=== PATIENT | female | born 1935 | race Caucasian/White ===

== ENCOUNTER 2019-11-11 18:13 | Inpatient (IN) | payer OTHER ==
[~2019-11-11] VITALS: Ht 167.6 cm; Wt 61.7 kg
[2019-11-11] MEDS ORDERED: ACETAMINOPHEN 650 mg PER 20 mL UD PO ONE (18:30)
[2019-11-11 18:38] LABS: Urine WBC None Seen /hpf (0 - 5)
[2019-11-11] MEDS ORDERED: levoFLOXacin 750MG 150 ML IV ONE (19:15)
[2019-11-11 19:23] LABS: Urine Bacteria FEW /hpf (None Seen); Urine Blood Negative /uL (Negative); Urine Specific Gravity 1.022 (1.001-1.035)
[2019-11-11 19:31] LABS: Basophils # (auto) 0 10 ^3/uL (0-0.2); Basophils % (auto) 0.3 % (0.0-2.0); Eosinophils # (auto) 0 10 ^3/uL (0-0.8); Eosinophils % (auto) 0.2 % (0.0-7.0); Hemoglobin 13.1 g/dL (12.2-16.2); Lymphocytes # (auto) 0.6 10 ^3/uL (0.4-5.4); Lymphocytes % (auto) 5.8 % (10.0-50.0); Mean Corpuscular Hemoglobin 29.7 pg (28.0-32.0); Mean Corpuscular Hgb Conc. 32.9 g/dL (32.0-36.0); Mean Corpuscular Volume 90.4 fL (80.0-100.0); Monocytes # (auto) 0.5 10 ^3/uL (0-1.3); Monocytes % (auto) 4.7 % (0.0-12.0); Neutrophils # (auto) 9.1 10 ^3/uL (1.6-8.6); Platelet Count (auto) 255 10^3/uL (140-450); Red Blood Cells 4.42 10^6/uL (4.0-5.20); Red Cell Distribution Width 13.3 % (11.8-14.3); White Blood Cell 10.3 10^3/uL (4.4-10.8)
[2019-11-11 19:33] LABS: Albumin 3.4 g/dL (3.4-5.0); Potassium 3.8 mmol/L (3.5-5.1)
[2019-11-11 19:42] LABS: Bilirubin, Total 1.8 mg/dL (0.2-1.0); Total Protein 7.3 g/dL (6.4-8.2)
[2019-11-11] MEDS ORDERED: IOHEXOL 300 MG/ML 100ML BOTTLE IJ ONE (20:23)
[2019-11-11 20:56] LABS: Amylase 52 U/L (25-115); Lipase 185 U/L (73-393)
[2019-11-12] MEDS ORDERED: ONDANSETRON HCL 4 MG/2 ML VIAL IV PRN (00:45)
[2019-11-12] MEDS ORDERED: DOCUSATE SOD 100 MG CAP PO PRN (00:45)
[2019-11-12] MEDS ORDERED: MORPHINE SULFATE 4 MG/ML SYR/VIAL IV PRN (00:45)
[2019-11-12] MEDS ORDERED: HYDROcodone-ACET 5/325MG TAB PO PRN (00:45)
[2019-11-12] MEDS ORDERED: hydrALAZINE HCL 25 MG TAB PO PRN (00:45)
[2019-11-12] MEDS: SODIUM CHLORIDE 0.9% 1,000 ML IV SCH ×3 (02:03→20:43)
[2019-11-12 05:35] VITALS: BP 142/71
[2019-11-12] MEDS: metroNIDAZOLE 500MG/100ML 100 ML IV SCH ×3 (05:58→21:19)
--- NOTE | 2019-11-12 05:59 | NUR ---
ms admit from ED pt arrived via wheelchair, awake, alert and oriented x4. pt on room air no distress noted. pt denies any pain. pt oriented to room, bed control, call light and this nurse. pt updated on plan of care, aware of npo status and belongings documented. pt bed locked, low and 2x rails up. call light in reach, this nurse to round q1hr and prn.
[2019-11-12 06:07] LABS: Basophils # (auto) 0 10 ^3/uL (0-0.2); Basophils % (auto) 0.2 % (0.0-2.0); Eosinophils # (auto) 0 10 ^3/uL (0-0.8); Eosinophils % (auto) 0.7 % (0.0-7.0); Hematocrit 35.8 % (36.0-46.0); Hemoglobin 12.1 g/dL (12.2-16.2); Lymphocytes # (auto) 0.6 10 ^3/uL (0.4-5.4); Lymphocytes % (auto) 8.9 % (10.0-50.0); Mean Corpuscular Hemoglobin 30.3 pg (28.0-32.0); Mean Corpuscular Hgb Conc. 33.7 g/dL (32.0-36.0); Mean Corpuscular Volume 89.9 fL (80.0-100.0); Monocytes # (auto) 0.4 10 ^3/uL (0-1.3); Monocytes % (auto) 6.5 % (0.0-12.0); Neutrophils # (auto) 5.5 10 ^3/uL (1.6-8.6); Neutrophils % (auto) 83.7 % (37.0-80.0); Nucleated Red Blood Cells % 0.1 %; Platelet Count (auto) 210 10^3/uL (140-450); Red Blood Cells 3.99 10^6/uL (4.0-5.20); Red Cell Distribution Width 13.2 % (11.8-14.3); White Blood Cell 6.6 10^3/uL (4.4-10.8)
[2019-11-12 06:24] LABS: Calcium 8.2 mg/dL (8.5-10.1); Potassium 3.4 mmol/L (3.5-5.1)
[2019-11-12 06:26] LABS: BUN/Creatinine Ratio 17.1
--- NOTE | 2019-11-12 08:05 | NUR ---
Opening Note Assumed care of patient, she is A & O x4, patient is hard of hearing. She left her hearing aid at home, she does not want to lose it here. POC discussed with patient. Bed is in lowest, locked position, call light within reach. Will continue to monitor Q1h and PRN.
[2019-11-12 09:00] VITALS: BP 132/71
[2019-11-12] MEDS: ACETAMINOPHEN 325 MG TAB PO PRN (09:54)
[2019-11-12] MEDS: CARVEDILOL 3.125 MG TAB PO SCH ×2 (09:54→21:20)
[2019-11-12 13:00] VITALS: BP 100/60
--- NOTE | 2019-11-12 14:01 | NUR ---
Dr. Chilel at bedside.
--- NOTE | 2019-11-12 14:20 | NUR ---
Orders from Dr. Garcia Received, read back and verified. Make patient NPO after 1900. Patient informed and educated. She agrees.
[2019-11-12] MEDS ORDERED: ALPR0.254 PO (14:21)
[2019-11-12] MEDS ORDERED: LEVO50TA7 PO (14:21)
[2019-11-12] MEDS ORDERED: ENAL2.5T PO (14:21)
[2019-11-12] MEDS ORDERED: ARIP1TAB58 PO (14:21)
[2019-11-12] MEDS ORDERED: METO25TA93 PO (14:21)
[2019-11-12] MEDS ORDERED: ESCI10TA53 PO (14:21)
[2019-11-12] MEDS ORDERED: LIOT1TAB2 PO (14:21)
[2019-11-12] MEDS ORDERED: ATOR20TA PO (14:21)
[2019-11-12] MEDS ORDERED: NORT-22 PO (14:21)
[2019-11-12 14:31] LABS: Albumin 2.7 g/dL (3.4-5.0); Calcium 8.2 mg/dL (8.5-10.1); Potassium 3.3 mmol/L (3.5-5.1)
[2019-11-12 14:35] LABS: BUN/Creatinine Ratio 13.4; Total Protein 6.7 g/dL (6.4-8.2)
[2019-11-12] MEDS ORDERED: cefTRIAXone 1GM/50ML D5W 50 ML IV ONE (14:45)
[2019-11-12 16:22] VITALS: BP 117/68
--- NOTE | 2019-11-12 18:40 | NUR ---
Tamir Coughlin at bedside Spoke to patient regarding possible surgical procedure, spoke to patient's son Scar as well on the phone. Will await orders at this time.
--- NOTE | 2019-11-12 20:07 | NUR ---
open note assumed care of pt, upon entering room pt awake, alert and oriented x4. pt on room air no distress noted or expressed. pt denies any pain. pt updated on plan of care. pt aware of NPO status after midnight in case of possible procedure tomorrow. pt bed locked, low and 2x rails up. pt call light in reach, this nurse to round q1hr and prn. pt encouraged to call as needed, including when pt needs to use restroom, to which pt agreed.
[2019-11-12 22:00] VITALS: BP 149/80
[2019-11-13] VITALS (7 sets, daily range): BP systolic 129–139; BP diastolic 70–76
[2019-11-13] MEDS: metroNIDAZOLE 500MG/100ML 100 ML IV SCH ×3 (06:13→21:57)
[2019-11-13] MEDS: SODIUM CHLORIDE 0.9% 1,000 ML IV SCH ×2 (06:13→16:31)
[2019-11-13 06:51] LABS: Basophils # (auto) 0 10 ^3/uL (0-0.2); Basophils % (auto) 0.5 % (0.0-2.0); Eosinophils # (auto) 0.1 10 ^3/uL (0-0.8); Eosinophils % (auto) 2.3 % (0.0-7.0); Hematocrit 33.5 % (36.0-46.0); Hemoglobin 11.5 g/dL (12.2-16.2); Lymphocytes # (auto) 0.7 10 ^3/uL (0.4-5.4); Lymphocytes % (auto) 14.4 % (10.0-50.0); Mean Corpuscular Hemoglobin 30.6 pg (28.0-32.0); Mean Corpuscular Hgb Conc. 34.4 g/dL (32.0-36.0); Monocytes # (auto) 0.4 10 ^3/uL (0-1.3); Monocytes % (auto) 9.5 % (0.0-12.0); Neutrophils # (auto) 3.5 10 ^3/uL (1.6-8.6); Neutrophils % (auto) 73.3 % (37.0-80.0); Nucleated Red Blood Cells % 0.1 %; Platelet Count (auto) 195 10^3/uL (140-450); Red Blood Cells 3.77 10^6/uL (4.0-5.20); Red Cell Distribution Width 13.3 % (11.8-14.3); White Blood Cell 4.7 10^3/uL (4.4-10.8)
[2019-11-13 07:02] LABS: Potassium 3.2 mmol/L (3.5-5.1)
[2019-11-13 07:08] LABS: Albumin 2.8 g/dL (3.4-5.0); Bilirubin, Total 0.6 mg/dL (0.2-1.0); Magnesium 2.1 mg/dL (1.6-2.6); Total Protein 6.6 g/dL (6.4-8.2)
--- NOTE | 2019-11-13 07:10 | NUR ---
OPENING SHIFT NOTE ASSUMED CARE OF PATIENT FROM PRE WAVE ASSEMBLER RN TUAN. PATIENT IS AWAKE AND ALERT X4. PATIENT HAS NO S/S OF DISTRESS/SOB OR PAIN. INSTRUCTED PATIENT ON POC, PATIENT VERBALIZED UNDERSTANDING. BED IS IN LOWEST POSITION WITH SIDE RAILS RAISED X2, BED WHEELS LOCKED, AND CALL LIGHT IS WITHIN REACH. WILL CONTINUE TO MONITOR.
[2019-11-13] MEDS: CARVEDILOL 3.125 MG TAB PO SCH ×2 (09:18→21:58)
[2019-11-13] MEDS: cefTRIAXone 1GM/50ML D5W 50 ML IV SCH (09:18)
--- NOTE | 2019-11-13 09:20 | NUR ---
PATIENT TAKEN OFF UNIT FOR MRI VIA WHEELCHAIR. PATIENT HAS NO S/S OF DISTRESS/SOB OR PAIN AT THIS TIME. WILL CONTINUE TO MONITOR.
--- NOTE | 2019-11-13 10:00 | NUR ---
PATIENT BACK FROM MRI. PATIENT HAS NO S/S OF DISTRESS/SOB OR PAIN AT THIS TIME. WILL CONTINUE TO MONITOR.
[2019-11-13 10:58] LABS: Free T3 1.88 pg/mL (2.3-4.2); Free T4 (Free Thyroxine) 1.31 ng/dL (0.89-1.76)
--- NOTE | 2019-11-13 14:07 | NUR ---
MD SERNA AT BEDSIDE UPDATED MD ON PATIENT'S STATUS INCLUDING MRCP, IS AWARE AND WANTS PRE OP CLEARANCE FROM INTERNATIONAL B[employer]ER DR. BONNER. PER DR. BONNER'S OFFICE HE DOES NOT COME TO [facility]. INFORMED MD SERNA, PER KAREEM HE WANTS ANOTHER INTERNATIONAL BANKER TO CLEAR PATIENT
--- NOTE | 2019-11-13 14:37 | NUR ---
MD DALE AT BEDSIDE UPDATED MD ON PATIENT'S STATUS INCLUDING BLOOD SPECIMEN, CARDIOLOGY CONSULT, TSH LEVELS, BLOOD PRESSURE AND AST AND ALT LEVELS. MD IS AWARE AND WILL ORDER HIDA SCAN
--- NOTE | 2019-11-13 14:40 | NUR ---
MD ORDERED FULL LIQUID DIET AFTER HIDA SCAN AND ADVANCE DIET TOLERATED. WILL FOLLOW THROUGH WITH ORDERS.
[2019-11-13 18:06] LABS: Albumin 2.7 g/dL (3.4-5.0); Calcium 8.1 mg/dL (8.5-10.1); Potassium 3.3 mmol/L (3.5-5.1)
[2019-11-13 18:11] LABS: BUN/Creatinine Ratio 9.5; Bilirubin, Total 0.4 mg/dL (0.2-1.0)
--- NOTE | 2019-11-13 19:40 | NUR ---
Opening Shift Note Assumed care of patient, awake, AAOx4. No S/S of distress/SOB or pain. On room air and ambulatory. Bed in lowest locked position, side rails up x2, call light within reach. Instructed on POC and to call for assist PRN, will continue to monitor for changes Q1hr and PRN.
[2019-11-14] MEDS: SODIUM CHLORIDE 0.9% 1,000 ML IV SCH ×3 (01:19→22:31)
--- NOTE | 2019-11-14 04:40 | NUR ---
MANDA EKG/ECG TECHNICIAN FROM [facility] CALLED REGARDING PATIENT STATUS AND IF DR DALE IS PLANNING ON TRANSFERRING PATIENT TO [facility] AFTER HIDA SCAN AND PENDING ORDERS. UPDATED MANDA ON PATIENT STATUS AND PENDING ORDERS. NO NEW ORDERS WERE GIVEN TO TRANSFER PATIENT. WILL RELAY INFORMATION TO DAYSHIFT RN.
[2019-11-14 05:01] VITALS: BP 128/67
[2019-11-14] MEDS: metroNIDAZOLE 500MG/100ML 100 ML IV SCH ×3 (05:40→22:40)
[2019-11-14 07:00] LABS: Basophils # (auto) 0 10 ^3/uL (0-0.2); Basophils % (auto) 0.8 % (0.0-2.0); Eosinophils # (auto) 0.2 10 ^3/uL (0-0.8); Eosinophils % (auto) 4.1 % (0.0-7.0); Hematocrit 33.7 % (36.0-46.0); Hemoglobin 11.3 g/dL (12.2-16.2); Lymphocytes # (auto) 0.9 10 ^3/uL (0.4-5.4); Lymphocytes % (auto) 20.3 % (10.0-50.0); Mean Corpuscular Hgb Conc. 33.7 g/dL (32.0-36.0); Monocytes # (auto) 0.5 10 ^3/uL (0-1.3); Monocytes % (auto) 10.8 % (0.0-12.0); Nucleated Red Blood Cells % 0.1 %; Platelet Count (auto) 221 10^3/uL (140-450); Red Blood Cells 3.79 10^6/uL (4.0-5.20); Red Cell Distribution Width 13.2 % (11.8-14.3); White Blood Cell 4.6 10^3/uL (4.4-10.8)
--- NOTE | 2019-11-14 07:20 | NUR ---
Opening Shift Note Assumed care of patient, awake,alert, No S/S of distress/SOB or pain. Instructed on POC and to call for assist PRN, will continue to monitor for changes Q1hr and PRN and turning q 2 hours.
--- NOTE | 2019-11-14 08:00 | NUR ---
TOLERATED SOFT DIET BREAKFAST,NO C/O NAUSEA, NO VOMITING
[2019-11-14 09:00] VITALS: BP 127/69
--- NOTE | 2019-11-14 09:00 | NUR ---
OOB AMBULATED TO REST ROOM,GAIT STEADY,NO SOB NO C/O PAIN
[2019-11-14] MEDS: cefTRIAXone 1GM/50ML D5W 50 ML IV SCH (10:13)
[2019-11-14] MEDS: CARVEDILOL 3.125 MG TAB PO SCH ×2 (10:14→22:41)
[2019-11-14 13:00] VITALS: BP 142/71
--- NOTE | 2019-11-14 16:00 | NUR ---
DR. Tamir SERNA AT BEDSIDE,SEEN AND EXAMINED PATIENT,EXPLAIN TO PATIENT PLAN OF CARE AND NOT NEEDING SURGERY BASED FROM HIDA SCAN REPORT,STATED PATIENT IS CLEAR FOR DISCHARGE.
[2019-11-14 17:00] VITALS: BP 133/65
--- NOTE | 2019-11-14 17:07 | NUR ---
Pt is an alert and oriented female that resides with her family prior to admission. Pt is hard of hearing and functioned independently. Pt's son Scar is involved, supportive and is her POA. Family able to transport pt home post discharge. Will continue to monitor and provide intervention as appropriate. Addendum: 11/14/19 at 1711 by LASHELL PRATT Amended: Links added.
--- NOTE | 2019-11-14 17:30 | NUR ---
MD VISIT DR. DALE HERE TO SEE AND EXAMINED PATIENT,STATED PATIENT WILL BE DISCHARGE IN A.M. PENDING REPEAT BLOOD CULTURE RESULT.
--- NOTE | 2019-11-14 19:20 | NUR ---
REPORT GIVEN TO INCOMING NOC SHIFT RN,NO DISTRESS NO DISCOMFORT.
--- NOTE | 2019-11-14 19:30 | NUR ---
Opening Shift Note Assumed care of patient, awake and alert. No S/S of distress/SOB or pain. Instructed on POC and to call for assist PRN, will continue to monitor for changes Q1hr and PRN.
[2019-11-14 20:00] VITALS: BP 140/74
[2019-11-14 22:00] VITALS: BP 140/74
--- NOTE | 2019-11-14 22:41 | NUR ---
IVF Patient requests to stop IV fluids at this time, as she is concerned that it is attributing to her increased blood pressure. Darian educated on the rationale for IVF. Will continue to monitor.
[2019-11-15 05:26] VITALS: BP 136/71
[2019-11-15] MEDS: metroNIDAZOLE 500MG/100ML 100 ML IV SCH (06:17)
[2019-11-15] MEDS: ACETAMINOPHEN 325 MG TAB PO PRN (06:22)
[2019-11-15 06:24] LABS: Potassium 3.1 mmol/L (3.5-5.1)
[2019-11-15 06:31] LABS: Albumin 2.7 g/dL (3.4-5.0); BUN/Creatinine Ratio 12.7; Bilirubin, Total 0.6 mg/dL (0.2-1.0); Calcium 8.1 mg/dL (8.5-10.1); Total Protein 6.5 g/dL (6.4-8.2)
--- NOTE | 2019-11-15 07:15 | NUR ---
Opening Shift Note Assumed care of patient, awake,alert, No S/S of distress/SOB or pain. Instructed on POC and to call for assist PRN, call light within reach patient reminded instructed to call for assistance. will continue to monitor for changes Q1hr and PRN and turning q 2 hours.
[2019-11-15] MEDS: SODIUM CHLORIDE 0.9% 1,000 ML IV SCH (08:31)
[2019-11-15 09:00] VITALS: BP 141/77
[2019-11-15] MEDS: CARVEDILOL 3.125 MG TAB PO SCH (10:07)
[2019-11-15] MEDS: cefTRIAXone 1GM/50ML D5W 50 ML IV SCH (10:12)
[2019-11-15 12:47] VITALS: BP 123/73
--- NOTE | 2019-11-15 14:20 | NUR ---
MD VISIT DR. DALE HERE TO SEE AND EXAMINED PATIENT RECIEVED ORDER FOR POTASSIUM REPLACEMENT AND DISCHARGE ORDER
[2019-11-15] MEDS ORDERED: POTASSIUM CHL 20 Meq TABLET PO ONE (14:30)
[2019-11-15 16:27] VITALS: BP 134/68
[2019-11-15 17:00] VITALS: BP 148/82
--- NOTE | 2019-11-15 17:45 | NUR ---
Discharge instructions given as ordered. Encourage to follow up with PMD as instructed. All questions and concerns addressed. Patient verbalized understanding. Medication reconciliation form completed and copy given to patient. IV removed with catheter intact, pressure dressing applied.Prescription called to [facility] in [place],spoke to pharmacist.
--- NOTE | 2019-11-15 18:30 | NUR ---
Patient taken to vehicle via wheelchair with all personal belongings, accompanied by staff and family member. No distress noted at time of departure.
== END 2019-11-15 18:30 | disposition home or self-care (01) | DRG 445 ==
LOC: ER 18:13 → EDBD 18:13 → OVERFLOW 18:14 → CENTRAL 11-12 05:15
PROVIDERS: ADMIT Hospitalist; ATTEND Internal Medicine
DX: K80.20 Calculus of gallbladder without cholecystitis without obstruction (principal); R78.81 Bacteremia; N39.0 Urinary tract infection, site not specified; R74.0 Nonspecific elevation of levels of transaminase and lactic acid dehydrogenase [LDH]; E78.5 Hyperlipidemia, unspecified; E03.9 Hypothyroidism, unspecified; I71.2 Thoracic aortic aneurysm, without rupture; I25.10 Atherosclerotic heart disease of native coronary artery without angina pectoris; I10 Essential (primary) hypertension; B96.20 Unspecified Escherichia coli [E. coli] as the cause of diseases classified elsewhere; B96.89 Other specified bacterial agents as the cause of diseases classified elsewhere; K57.30 Diverticulosis of large intestine without perforation or abscess without bleeding; Z95.1 Presence of aortocoronary bypass graft; Z79.899 Other long term (current) drug therapy
CPT/HCPCS: 36415; 71046; 74177; 74181; 76705; 78226; 80048; 80053; 80320; 81001; 82150; 83605; 83690; 83735; 84439; 84443; 84481; 84484; 85025; 87040; 87077; 87186; 87804; 93005; 93306; 96365; G0378; J0696; J1956; J3490

== ENCOUNTER 2020-01-24 12:00 | Inpatient (IN) | payer OTHER ==
[~2020-01-24] VITALS: Ht 167.6 cm; Wt 61.1 kg
[~2020-01-24 12:00] MED LIST: ALPR0.254 PO; ARIP1TAB58 PO; ENAL2.5T PO; ESCI10TA53 PO; LEVO50TA7 PO; LIOT1TAB2 PO; METO25TA93 PO; NORT-22 PO
[2020-01-24 13:23] LABS: Basophils # (auto) 0.1 10 ^3/uL (0-0.2); Eosinophils # (auto) 0.2 10 ^3/uL (0-0.8); Eosinophils % (auto) 2.7 % (0.0-7.0); Hematocrit 37.7 % (36.0-46.0); Hemoglobin 12.7 g/dL (12.2-16.2); Lymphocytes # (auto) 1.4 10 ^3/uL (0.4-5.4); Lymphocytes % (auto) 24.4 % (10.0-50.0); Mean Corpuscular Hemoglobin 29.9 pg (28.0-32.0); Mean Corpuscular Hgb Conc. 33.8 g/dL (32.0-36.0); Mean Corpuscular Volume 88.7 fL (80.0-100.0); Monocytes # (auto) 0.6 10 ^3/uL (0-1.3); Monocytes % (auto) 10.1 % (0.0-12.0); Neutrophils # (auto) 3.5 10 ^3/uL (1.6-8.6); Neutrophils % (auto) 61.8 % (37.0-80.0); Platelet Count (auto) 268 10^3/uL (140-450); Red Blood Cells 4.25 10^6/uL (4.0-5.20); Red Cell Distribution Width 13.5 % (11.8-14.3); White Blood Cell 5.7 10^3/uL (4.4-10.8)
[2020-01-24 13:39] LABS: Anion Gap 5 (5-15); Blood Urea Nitrogen 18 mg/dL (7-18); Calcium 9.4 mg/dL (8.5-10.1); Carbon Dioxide 24 mmol/L (21-32); Chloride 110 mmol/L (98-107); Glucose 100 mg/dL (74-106); Magnesium 2.2 mg/dL (1.6-2.6); Potassium 3.9 mmol/L (3.5-5.1); Sodium 139 mmol/L (136-145)
[2020-01-24 13:45] LABS: Alanine Aminotransferase 16 U/L (13-56); Alkaline Phosphatase 75 U/L (45-117); Aspartate Aminotransferase 13 U/L (15-37); BUN/Creatinine Ratio 22.8; Bilirubin, Total 0.4 mg/dL (0.2-1.0); GFR African American 89 mL/min; GFR Non-African American 74 mL/min; Total Protein 7.7 g/dL (6.4-8.2)
[2020-01-24] MEDS ORDERED: MORPHINE SULF INJ 2 MG/ML SYRINGE 1ML IV PRN (14:30)
[2020-01-24] MEDS ORDERED: cefTRIAXone 1GM/50ML D5W 50 ML IV ONE (14:30)
[2020-01-24] MEDS ORDERED: NITROGLYCERIN 0.4 MG SL TAB SL PRN (14:30)
[2020-01-24 15:28] LABS: Urine Bacteria NONE SEEN /hpf (None Seen); Urine Blood Negative /uL (Negative); Urine Specific Gravity 1.009 (1.001-1.035); Urine WBC 1 /hpf (0 - 5)
[2020-01-24] MEDS: SODIUM CHLORIDE 0.9% 1,000 ML IV SCH (15:32)
[2020-01-24 17:37] VITALS: BP 126/68
[2020-01-24] MEDS ORDERED: ATOR20TA50 PO (18:39)
[2020-01-24] MEDS ORDERED: CEPH750C6 OR (18:39)
[2020-01-24] MEDS ORDERED: ATORVASTATIN 20 MG TAB PO SCH (22:00)
[2020-01-24 22:19] VITALS: BP 118/66
[2020-01-25] MEDS: SODIUM CHLORIDE 0.9% 1,000 ML IV SCH ×2 (03:50→19:10)
[2020-01-25 05:31] VITALS: BP 124/73
[2020-01-25 06:23] LABS: Basophils # (auto) 0 10 ^3/uL (0-0.2); Basophils % (auto) 0.6 % (0.0-2.0); Eosinophils # (auto) 0.2 10 ^3/uL (0-0.8); Eosinophils % (auto) 3.8 % (0.0-7.0); Hematocrit 37.2 % (36.0-46.0); Hemoglobin 12.5 g/dL (12.2-16.2); Lymphocytes # (auto) 1.6 10 ^3/uL (0.4-5.4); Lymphocytes % (auto) 27.6 % (10.0-50.0); Mean Corpuscular Hemoglobin 29.9 pg (28.0-32.0); Mean Corpuscular Hgb Conc. 33.6 g/dL (32.0-36.0); Mean Corpuscular Volume 88.9 fL (80.0-100.0); Monocytes # (auto) 0.6 10 ^3/uL (0-1.3); Monocytes % (auto) 9.6 % (0.0-12.0); Neutrophils # (auto) 3.4 10 ^3/uL (1.6-8.6); Neutrophils % (auto) 58.4 % (37.0-80.0); Nucleated Red Blood Cells % 0.1 %; Platelet Count (auto) 261 10^3/uL (140-450); Red Blood Cells 4.19 10^6/uL (4.0-5.20); Red Cell Distribution Width 13.5 % (11.8-14.3); White Blood Cell 5.8 10^3/uL (4.4-10.8)
[2020-01-25] MEDS: LEVOTHYROXINE SODIUM 25 MCG TAB PO SCH (06:35)
[2020-01-25 06:43] LABS: BUN/Creatinine Ratio 20.3; Calcium 8.8 mg/dL (8.5-10.1); Potassium 3.9 mmol/L (3.5-5.1)
[2020-01-25 07:30] VITALS: BP 126/74
[2020-01-25 09:00] VITALS: BP 126/74
[2020-01-25] MEDS: ASPirin 81 mg TAB PO SCH (09:07)
[2020-01-25] MEDS: cefTRIAXone 1GM/50ML D5W 50 ML IV SCH (09:07)
[2020-01-25 14:00] VITALS: BP 123/72
[2020-01-25 17:00] VITALS: BP 132/76
[2020-01-25] MEDS ORDERED: ATORVASTATIN 20 MG TAB PO SCH (22:00)
[2020-01-25 22:24] VITALS: BP 137/74
[2020-01-26 05:40] VITALS: BP 126/76
[2020-01-26] MEDS: SODIUM CHLORIDE 0.9% 1,000 ML IV SCH (06:34)
[2020-01-26] MEDS: LEVOTHYROXINE SODIUM 25 MCG TAB PO SCH (06:35)
[2020-01-26 09:18] VITALS: BP 116/74
[2020-01-26] MEDS: ASPirin 81 mg TAB PO SCH (09:59)
[2020-01-26] MEDS: cefTRIAXone 1GM/50ML D5W 50 ML IV SCH (09:59)
[2020-01-26 12:42] VITALS: BP 132/82
[2020-01-26 15:42] VITALS: BP 132/82
[2020-01-26 17:00] VITALS: BP 147/70
[2020-01-26] MEDS ORDERED: ATORVASTATIN 20 MG TAB PO SCH (22:00)
== END 2020-01-26 18:14 | disposition home or self-care (01) | DRG 64 ==
LOC: ER 12:00 → TELE-WESTW 12:01
PROVIDERS: ADMIT Internal Medicine; ATTEND Internal Medicine
DX: I63.9 Cerebral infarction, unspecified (principal); G93.41 Metabolic encephalopathy; N39.0 Urinary tract infection, site not specified; K80.20 Calculus of gallbladder without cholecystitis without obstruction; I10 Essential (primary) hypertension; I25.10 Atherosclerotic heart disease of native coronary artery without angina pectoris; E78.5 Hyperlipidemia, unspecified; Z95.1 Presence of aortocoronary bypass graft; E03.9 Hypothyroidism, unspecified; R26.2 Difficulty in walking, not elsewhere classified; Z87.891 Personal history of nicotine dependence; Z90.710 Acquired absence of both cervix and uterus
CPT/HCPCS: 36415; 70450; 70551; 71045; 80048; 80053; 81001; 83735; 84443; 84484; 85025; 87086; 93005; 93306; 93886; 95819; 97163; G0378; J0696